=== PATIENT | female | born 1975 | race Caucasian/White ===

== ENCOUNTER 2018-02-10 17:05 | Emergency (ER) | payer BC, OTHER ==
[2018-02-10] MEDS ORDERED: Sodium Chloride 0.9% 1000 ML 1,000 ML IV STA (17:29)
[2018-02-10] MEDS ORDERED: MORPHINE SULFATE 10 MG/ML IV ONE (17:29)
[2018-02-10] MEDS ORDERED: BENADRYL 50 MG/ML IV ONE (17:29)
--- NOTE | 2018-02-10 17:39 | ERPHSYRPT ---
- History of Present Illness Time Seen by Provider: 02/10/18 17:20 Historian: patient Exam Limitations: clinical condition Patient Subjective Stated Complaint: Right flank pain x1 hour Triage Nursing Assessment: Pt presents to the ED with complaints of right flank pain that began approximately an hour ago. Pt states she was sitting on her couch when the pain began. Pt states she believes she may be constipated, states hx of constipated. No distress noted, skin PWD, A&O x4. Physician History: PATIENT COMPLAINS OF ACUTE ONSET OF RIGHT LOWER BACK PAIN X 1 HOUR, SEVERE DISCOMFORT, PAIN SCALE 10/10, DENIES NAUSEA, EMESIS, URINARY SYMPTOMS, FREQUENCY, URGENCY, DYSURIA, HEMATURIA, OR RADIATION OF PAIN INTO LOWER ABDOMEN. DENIES FEVER OR CHILLS. EMS ADMINISTERED INTRAVENOUS ZOFRAN 4MG AND FENTANYL 100MCG. Timing/Duration: today Activities at Onset: none Quality: sharpness, throbbing Abdominal Pain Onset Location: flank, other (RIGHT LOWER BACK PAIN) Severity of Pain-Max: severe Severity of Pain-Current: severe Modifying Factors: Improves With: movement Associated Symptoms: denies symptoms Previous symptoms: no prior history Allergies/Adverse Reactions: povidone-iodine [From Betadine] Allergy (Verified 05/26/13 17:03) soap [From Betadine] Allergy (Verified 05/26/13 17:03) Home Medications: Desvenlafaxine [Desvenlafaxine ER] 100 mg PO DAILY 02/10/18 [History] Hx Tetanus, Diphtheria Vaccination/Date Given: Yes Hx Influenza Vaccination/Date Given: No Hx Pneumococcal Vaccination/Date Given: No Immunizations Up to Date: No - Review of Systems Constitutional: No Fever, No Chills Eyes: No Symptoms Ears, Nose, & Throat: No Symptoms Respiratory: No Cough, No Dyspnea Cardiac: No Chest Pain, No Edema, No Syncope Abdominal/Gastrointestinal: No Abdominal Pain, No Nausea, No Vomiting, No Diarrhea Genitourinary Symptoms: Flank Pain, No Dysuria Musculoskeletal: Back Pain, No Neck Pain Skin: No Rash Neurological: No Dizziness, No Focal Weakness, No Sensory Changes Psychological: No Symptoms Endocrine: No Symptoms All Other Systems: Reviewed and Negative - Past Medical History Pertinent Past Medical History: No - Past Surgical History Past Surgical History: Yes Female Surgical History: Section Other Surgical History: BREAST REDUCTION, - Social History Smoking Status: Never smoker Exposure to second hand smoke: No Alcohol Use: None Drug Use: none Patient Lives Alone: No Significant Family History: no pertinent family hx - Female History Hx Now: No - Nursing Vital Signs Nursing Vital Signs: Initial Vital Signs Temperature 98.4 F 02/10/18 17:06 Pulse Rate 57 L 02/10/18 17:06 Respiratory Rate 16 02/10/18 17:06 Blood Pressure 204/94 02/10/18 17:06 O2 Sat by Pulse Oximetry 96 02/10/18 17:06 Pain Scale Pain Intensity 6 - Physical Exam General Appearance: mild distress, alert Eye Exam: PERRL/EOMI, eyes nml inspection Ears, Nose, Throat Exam: normal ENT inspection, pharynx normal, moist mucous membranes Neck Exam: normal inspection, non-tender, supple, full range of motion Respiratory Exam: normal breath sounds, lungs clear, No respiratory distress Cardiovascular Exam: regular rate/rhythm, normal heart sounds Gastrointestinal/Abdomen Exam: soft, normal bowel sounds (NONTENDER), No tenderness, No mass Back Exam: normal inspection, normal range of motion, other (TENDERNESS RIGHT POSTERIOR SUPERIOR ILIAC CREST, NO LUMBAR SPINAL, PARASPINAL OR SACROILIAC JOINT TENDERNESS, MINIMAL RIGHT CVA TENDERNESS), No CVA tenderness, No vertebral tenderness Extremity Exam: normal inspection, normal range of motion, pelvis stable Neurologic Exam: alert, 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, cooperative, normal mood/affect, nml cerebellar function, sensation nml, No motor deficits Skin Exam: normal color, warm, dry SpO2: 96 Oxygen Delivery: Room Air - CT Exams Abdomen/Pelvis CT Interpretation: Discussed w/radiologist (NEGATIVE FOR CALCULUS, MILD RIGHT HYDRONEPHROSIS WITH MNIMAL HYDROURETER, POSSIBLE PASSAGE OF STONE, IUD, 3CM LEFT OVARIAN CYST, L5 SPONDYLOLYSIS, WITH 6MM SPONDYLOLISTHESIS) Ordered Tests: Active Orders 24 hr Category Date Time Status Clean Catch Urine Specimen STAT Care 02/10/18 17:29 Active IV Insertion STAT Care 02/10/18 17:29 Active ABDOMEN AND PELVIS W/0 CONTRAS [CT] Stat Exams 02/10/18 17:30 Taken CBC W DIFF Stat Lab 02/10/18 18:00 Completed CMP Stat Lab 02/10/18 18:00 Completed CULTURE,URINE Stat Lab 02/10/18 17:50 Received HCG,QUALITATIVE URINE Stat Lab 02/10/18 17:50 Completed LIPASE Stat Lab 02/10/18 18:00 Completed UA W/ MICROSCOPIC Stat Lab 02/10/18 17:50 Completed Urine Triage Profile Stat Lab 02/10/18 17:50 Completed Medication Summary Discontinued Medications Generic Name Dose Route Start Last Admin Trade Name Freq PRN Reason Stop Dose Admin Diphenhydramine HCl 25 mg 02/10/18 17:29 02/10/18 17:58 Benadryl 50 Mg/Ml IV 02/10/18 17:30 25 mg STAT ONE Administration Diphenhydramine HCl Confirm 02/10/18 17:50 Benadryl 50 Mg/Ml Administered 02/10/18 17:51 Dose 50 mg .ROUTE .STK-MED ONE Sodium Chloride 1,000 mls @ 999 mls/hr 02/10/18 17:29 02/10/18 17:58 Sodium Chloride 0.9% 1000 Ml IV 02/10/18 18:29 999 mls/hr .Q1H1M STA Administration Sodium Chloride Confirm 02/10/18 17:50 Sodium Chloride 0.9% 1000 Ml Administered 02/10/18 17:51 Dose 1,000 mls @ ud .ROUTE .STK-MED ONE Morphine Sulfate 6 mg 02/10/18 17:29 02/10/18 17:58 Morphine Sulfate 10 Mg/Ml IV 02/10/18 17:30 6 mg STAT ONE Administration Morphine Sulfate Confirm 02/10/18 17:50 Morphine Sulfate 10 Mg/Ml Administered 02/10/18 17:51 Dose 10 mg .ROUTE .STK-MED ONE Lab/Rad Data: Laboratory Result Diagrams 02/10/18 18:00 02/10/18 18:00 Laboratory Results 02/10/18 02/10/18 02/10/18 Range/Units 18:00 18:00 17:50 WBC 10.2 (4.0-10.5) K/mm3 RBC 5.08 (4.1-5.4) M/mm3 Hgb 15.1 (12.0-16.0) gm/dl Hct 45.2 (35-47) % MCV 89.0 (78-100) fl MCH 29.7 (26-32) pg MCHC 33.4 (32-36) g/dl RDW 13.0 (11.5-14.0) % Plt Count 261 (150-450) K/mm3 MPV 11.2 H (6-9.5) fl Gran % 75.9 H (36.0-66.0) % Eos # (Auto) 0.35 (0-0.5) Absolute Lymphs (auto) 1.60 (1.0-4.6) Absolute Monos (auto) 0.48 (0.0-1.3) Lymphocytes % 15.7 L (24.0-44.0) % Monocytes % 4.7 (0.0-12.0) % Eosinophils % 3.4 (0.00-5.0) % Basophils % 0.3 (0.0-0.4) % Absolute Granulocytes 7.76 H (1.4-6.9) Basophils # 0.03 (0-0.4) Sodium 141 (137-145) mmol/L Potassium 4.0 (3.5-5.1) mmol/L Chloride 104 (98-107) mmol/L Carbon Dioxide 30 (22-30) mmol/L Anion Gap 10.7 (5-15) MEQ/L BUN 8 (7-17) mg/dL Creatinine 0.78 (0.52-1.04) mg/dL Estimated GFR > 60.0 ML/MIN Glucose 111 H (74-106) mg/dL Calcium 9.2 (8.4-10.2) mg/dL Total Bilirubin 0.50 (0.2-1.3) mg/dL AST 33 (14-36) U/L ALT 44 H (0-35) U/L Alkaline Phosphatase 163 H (38-126) U/L Serum Total Protein 7.1 (6.3-8.2) g/dL Albumin 4.0 (3.5-5.0) g/dL Lipase 74 (23-300) U/L Ur Collection Type Urine Color (YELLOW) Urine Appearance (CLEAR) Urine pH (5-6) Ur Specific [place] (1.005-1.025) Urine Protein (Negative) Urine Ketones (NEGATIVE) Urine Blood (0-5) Jefry/ul Urine Nitrite (NEGATIVE) Urine Bilirubin (NEGATIVE) Urine Urobilinogen (0-1) mg/dL Ur Leukocyte Esterase (NEGATIVE) Urine Microscopic RBC (0-2) /HPF Urine Microscopic WBC (0-5) /HPF Ur Epithelial Cells (FEW) /HPF Urine Bacteria (NEGATIVE) /HPF Hyaline Casts (0-2) /LPF Urine Mucus (NEGATIVE) /HPF Urine Culture Reflexed (NO) Urine Glucose (NEGATIVE) mg/dL Urine HCG, Qual NEGATIVE (Negative) Urine Opiates Level (NEGATIVE) Ur Methadone (NEGATIVE) Urine Barbiturates (NEGATIVE) Ur Phencyclidine (PCP) (NEGATIVE) Urine Amphetamine (NEGATIVE) U Benzodiazepine Level (NEGATIVE) Urine Cocaine (NEGATIVE) Urine Marijuana (THC) (NEGATIVE) Specimen Received 02/10/18 02/10/18 Range/Units 17:50 17:50 WBC (4.0-10.5) K/mm3 RBC (4.1-5.4) M/mm3 Hgb (12.0-16.0) gm/dl Hct (35-47) % MCV (78-100) fl MCH (26-32) pg MCHC (32-36) g/dl RDW (11.5-14.0) % Plt Count (150-450) K/mm3 MPV (6-9.5) fl Gran % (36.0-66.0) % Eos # (Auto) (0-0.5) Absolute Lymphs (auto) (1.0-4.6) Absolute Monos (auto) (0.0-1.3) Lymphocytes % (24.0-44.0) % Monocytes % (0.0-12.0) % Eosinophils % (0.00-5.0) % Basophils % (0.0-0.4) % Absolute Granulocytes (1.4-6.9) Basophils # (0-0.4) Sodium (137-145) mmol/L Potassium (3.5-5.1) mmol/L Chloride (98-107) mmol/L Carbon Dioxide (22-30) mmol/L Anion Gap (5-15) MEQ/L BUN (7-17) mg/dL Creatinine (0.52-1.04) mg/dL Estimated GFR ML/MIN Glucose (74-106) mg/dL Calcium (8.4-10.2) mg/dL Total Bilirubin (0.2-1.3) mg/dL AST (14-36) U/L ALT (0-35) U/L Alkaline Phosphatase (38-126) U/L Serum Total Protein (6.3-8.2) g/dL Albumin (3.5-5.0) g/dL Lipase (23-300) U/L Ur Collection Type CLEAN CATCH Urine Color YELLOW (YELLOW) Urine Appearance CLEAR (CLEAR) Urine pH 5.0 (5-6) Ur Specific [place] 1.020 (1.005-1.025) Urine Protein NEGATIVE (Negative) Urine Ketones NEGATIVE (NEGATIVE) Urine Blood 50 (0-5) Jefry/ul Urine Nitrite NEGATIVE (NEGATIVE) Urine Bilirubin NEGATIVE (NEGATIVE) Urine Urobilinogen NORMAL (0-1) mg/dL Ur Leukocyte Esterase NEGATIVE (NEGATIVE) Urine Microscopic RBC 5-10 (0-2) /HPF Urine Microscopic WBC 0-2 (0-5) /HPF Ur Epithelial Cells FEW (FEW) /HPF Urine Bacteria FEW (NEGATIVE) /HPF Hyaline Casts 0-2 (0-2) /LPF Urine Mucus SLIGHT (NEGATIVE) /HPF Urine Culture Reflexed YES (NO) Urine Glucose NEGATIVE (NEGATIVE) mg/dL Urine HCG, Qual (Negative) Urine Opiates Level NEGATIVE (NEGATIVE) Ur Methadone NEGATIVE (NEGATIVE) Urine Barbiturates NEGATIVE (NEGATIVE) Ur Phencyclidine (PCP) NEGATIVE (NEGATIVE) Urine Amphetamine NEGATIVE (NEGATIVE) U Benzodiazepine Level NEGATIVE (NEGATIVE) Urine Cocaine NEGATIVE (NEGATIVE) Urine Marijuana (THC) NEGATIVE (NEGATIVE) Specimen Received 02/10/18 1750 - Progress Progress: improved Progress Note: 02/10/18 17:40 IV NORMAL SALINE 1000ML/HR, BENADRYL 25MG, MORPHINE 6MG IV Counseled pt/family regarding: lab results, diagnosis, need for follow-up, rad results - Departure Time of Disposition: 20:00 Departure Disposition: Home Clinical Impression: RIGHT RENAL COLIC Condition: Stable Critical Care Time: No Referrals: DONNELL VANCE MD [Primary Care Provider] - Additional Instructions: STRAIN URINE FOR 72 HOURS. TORADOL 10 MG EVERY 6 HOURS FOR MILD TO MODERATE PAIN. NORCO 10/325 EVERY 4 HOURS FOR SEVERE PAIN. ZOFRAN 4MG EVERY 6 HOURS FOR NAUSEA. DRINK PLENTY OF FLUIDS. CONSULT YOUR PRIMARY CARE PROVIDER FOR FOLLOWUP. Prescriptions: Hydrocodone/APAP 10/325 mg [[place] 10/325 MG Tablet] 1 tab PO Q4H PRN PRN # 10 tablet MDD 4 PRN Reason: Pain Ketorolac Tromethamine [Toradol] 10 mg PO Q6HPRN PRN #20 tablet PRN Reason: Pain Ondansetron ODT 4 MG [Zofran Odt 4 mg] 4 mg PO Q6H PRN PRN #6 tab.rapdis PRN Reason: Nausea
[2018-02-10] MEDS ORDERED: Sodium Chloride 0.9% 1000 ML 1,000 ML ONE (17:50)
[2018-02-10] MEDS ORDERED: BENADRYL 50 MG/ML ONE (17:50)
[2018-02-10] MEDS ORDERED: MORPHINE SULFATE 10 MG/ML ONE (17:50)
[2018-02-10 18:12] LABS: BASOPHIL % 0.3 % (0.0-0.4); Basophil (Absolute #) 0.03 (0-0.4); Eosinophil % 3.4 % (0.00-5.0); Eosinophil (Absolute #) 0.35 (0-0.5); Granulocyte Absolute (ANC) 7.76 (1.4-6.9); Granulocytes % 75.9 % (36.0-66.0); Hematocrit 45.2 % (35-47); Hemoglobin 15.1 gm/dl (12.0-16.0); Lymphocytes % 15.7 % (24.0-44.0); Mean Corpuscular Hemoglobin 29.7 pg (26-32); Mean Corpuscular Hgb Concent. 33.4 g/dl (32-36); Mean Platelet Volume 11.2 fl (6-9.5); Monocyte (Absolute #) 0.48 (0.0-1.3); Monocytes % 4.7 % (0.0-12.0); Platelet Count 261 K/mm3 (150-450); Red Blood Count 5.08 M/mm3 (4.1-5.4); White Blood Count 10.2 K/mm3 (4.0-10.5)
[2018-02-10 18:32] LABS: ALKALINE PHOSPHATASE 163 U/L (38-126); ANION GAP 10.7 MEQ/L (5-15); BLOOD UREA NITROGEN 8 mg/dL (7-17); CHLORIDE 104 mmol/L (98-107); Calcium 9.2 mg/dL (8.4-10.2); Carbon Dioxide 30 mmol/L (22-30); Creatinine 1 0.78 mg/dL (0.52-1.04); Glucose 111 mg/dL (74-106); LIPASE 74 U/L (23-300); SGOT/AST 33 U/L (14-36); SGPT/ALT 44 U/L (0-35); SODIUM 141 mmol/L (137-145); Total Protein 7.1 g/dL (6.3-8.2)
[2018-02-10 18:51] LABS: Amphetamine,Urine NEGATIVE (NEGATIVE); Barbiturate,Urine NEGATIVE (NEGATIVE); Benzodiazepine,Urine NEGATIVE (NEGATIVE); Cocaine,Urine NEGATIVE (NEGATIVE); Methadone,Urine NEGATIVE (NEGATIVE); Opiate,Urine NEGATIVE (NEGATIVE); PCP,Urine NEGATIVE (NEGATIVE); THC,Urine NEGATIVE (NEGATIVE)
[2018-02-10 18:54] LABS: Appearance CLEAR (CLEAR)
[2018-02-10 18:55] LABS: Bilirubin NEGATIVE (NEGATIVE); Blood 50 Ery/ul (0-5); Glucose NEGATIVE (NEGATIVE); Ketones NEGATIVE (NEGATIVE); Leukocyte Esterase NEGATIVE (NEGATIVE); Nitrite NEGATIVE (NEGATIVE); Protein,Urine Dip NEGATIVE (Negative); Urobilinogen NORMAL mg/dL (0-1)
[2018-02-10 19:19] LABS: Mucus SLIGHT /HPF (NEGATIVE)
[2018-02-10 19:20] LABS: Bacteria FEW /HPF (NEGATIVE); Epithelial Cells FEW /HPF (FEW); Hyaline Casts 0-2 /LPF (0-2); WBC 0-2 /HPF (0-5)
[2018-02-10 20:31] VITALS: BP 125/74; PULSE 66; O2SAT 97
--- NOTE | 2018-02-11 09:17 | XRAY ---
Indication: Right flank pain. Multiple contiguous axial images obtained through the abdomen and pelvis without contrast using renal stone protocol. Comparison: None Lung bases are essentially clear. Heart is not enlarged. No renal calculus in either system. Right kidney is mildly hydronephrotic and the right ureter is slightly prominent which can be seen from recent passage of calculus. Elsewhere there is a 3 cm left ovary cyst and a IUD in situ. Previous cholecystectomy. No free fluid/air. Noncontrasted stomach and bowel loops appear nonobstructed. Normal appendix. Remaining liver, pancreas, spleen, adrenal glands, kidneys, ureters, bladder, uterus, and aorta appear unremarkable for noncontrast exam. Osseous structures intact with bilateral L5 spondylolysis and 6 mm spondylolisthesis. Incidental L3 vertebral hemangioma. Small fatty epigastric midline ventral hernia. Impression: 1. Negative renal calculus. However right kidney is mildly hydronephrotic and the right ureter is slightly prominent possibly from recent passage of calculus. 2. Incidental 3 cm left ovary cyst and small fatty ventral hernia. 3. Bilateral L5 spondylolysis with grade 1 spondylolisthesis. Also L3 vertebral hemangioma. CT DI 23.68
== END 2018-02-10 20:32 | disposition home or self-care (01) ==
LOC: ED 17:05
DX: N23 Unspecified renal colic (principal); R10.9 Unspecified abdominal pain; M54.5 Low back pain
CPT/HCPCS: 36000; 36415; 74176; 80053; 80307; 81000; 83690; 84703; 85025; 87086; 96374; 96375; 99284; J1200; J2270

== ENCOUNTER 2023-01-21 15:44 | Emergency (ER) | payer BC ==
--- NOTE | 2023-01-21 15:50 | ERPHSYRPT ---
- History of Present Illness Time Seen by Provider: 01/21/23 15:50 Source: patient Exam Limitations: no limitations Physician History: This is a 47-year-old overweight white female patient who has a nurse practitioner Patrick as her primary prescribing provider and presents to the emergency department with dizziness and low blood pressure. Patient is on a single tablet but a combination antihypertensive lisinopril/hydrochlorothiazide. She has been taking this medication for quite some time. Patient has noticed in the last several days that she has had intermittent dizziness and a migraine headache. Today, she noticed when she was up and active or suddenly turned her head or stood up she became more dizzy. Patient's systolic blood pressure upon arrival to the emergency department was 108. She denies chest pain. She denies shortness of breath. She has no abdominal pain. She has had no nausea vomiting or diarrhea symptoms. She has had no fevers. She denies cough. She has had this issue in the past with low blood pressure and dizziness and her prescribing provider took one of her blood pressure medicines away and this helped for a period of time. Patient denies any new medications. Patient denies head injury Timing/Duration: day(s) (Last few days), intermittent, worse (Worse today) Severity: mild (To moderate) Character of Deficits: none Deficits: no difficulties Baseline/Normal Cognition: alert 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 Current Cognition: alert 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 Baseline Gait: walks w/o assistance Associated Symptoms: headache, No loss of consciousness, No nausea, No vomiting, No weakness, No slurred speech, No vision changes, No chest pain Allergies/Adverse Reactions: povidone-iodine [From Betadine] Allergy (Verified 01/21/23 15:57) soap [From Betadine] Allergy (Verified 01/21/23 15:57) Home Medications: Desvenlafaxine [Desvenlafaxine ER] 100 mg PO DAILY 02/10/18 [History] Lisinopril/Hydrochlorothiazide [Lisinopril-Hctz 20-25 mg Tab] 1 tab PO DAILY 01/21/23 [History] Hx Tetanus, Diphtheria Vaccination/Date Given: Yes Hx Influenza Vaccination/Date Given: No Hx Pneumococcal Vaccination/Date Given: No Travel Risk - International Travel Have you traveled outside of the country in past 3 weeks: No - Coronavirus Screening Are you exhibiting any of the following symptoms?: No Close contact with a COVID-19 positive Pt in past 14-21 Days: No - Review of Systems Constitutional: No Symptoms Eyes: No Symptoms Ears, Nose, & Throat: No Symptoms Respiratory: No Symptoms Cardiac: No Symptoms Abdominal/Gastrointestinal: No Symptoms Genitourinary Symptoms: No Symptoms Musculoskeletal: No Symptoms Neurological: Dizziness, Headache Psychological: No Symptoms Endocrine: No Symptoms Hematologic/Lymphatic: No Symptoms Immunological/Allergic: No Symptoms All Other Systems: Reviewed and Negative - Past Medical History Pertinent Past Medical History: No Neurological History: No Pertinent History Cardiac History: Hypertension Respiratory History: No Pertinent History Endocrine Medical History: No Pertinent History Musculoskeletal History: No Pertinent History - Past Surgical History Past Surgical History: Yes Female Surgical History: Section Other Surgical History: BREAST REDUCTION, - Social History Smoking Status: Never smoker Exposure to second hand smoke: No Alcohol Use: None Drug Use: none Patient Lives Alone: No Significant Family History: no pertinent family hx - Nursing Vital Signs Nursing Vital Signs: Initial Vital Signs Temperature 97.7 F 01/21/23 16:01 Pulse Rate 82 01/21/23 16:01 Respiratory Rate 18 01/21/23 16:01 Blood Pressure 108/73 01/21/23 16:01 O2 Sat by Pulse Oximetry 98 01/21/23 16:01 Pain Scale Pain Intensity 5 - Lisa Coma Scale Best Eye Response ([place]): (4) open spontaneously Best Verbal Response (Lisa): (5) oriented Best Motor Response (Lisa): (6) obeys commands Lisa Total: 15 - Physical Exam General Appearance: no apparent distress, alert, anxiety Eye Exam: bilateral eye: normal inspection, PERRL, EOMI Ears, Nose, Throat Exam: normal ENT inspection, moist mucous membranes Neck Exam: normal inspection, non-tender, supple, full range of motion Respiratory: normal breath sounds, lungs clear, airway intact, No chest tenderness, No respiratory distress Cardiovascular: regular rate/rhythm, normal heart sounds, normal peripheral pulses Gastrointestinal: soft, normal bowel sounds, No tenderness Pelvic Exam: not done Rectal Exam: not done Back Exam: normal inspection, normal range of motion, No CVA tenderness, No vertebral tenderness Extremity Exam: normal inspection, normal range of motion, pelvis stable Mental 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: alert, 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, 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 Exam: normal hearing, normal speech, PERRL, tongue midline Coordination/Gait: normal gait, normal cerebellar function Motor/Sensory: no motor deficit, no sensory deficit, no pronator drift Skin Exam: normal color, warm, dry SpO2 Interpretation: normal O2 Delivery: Room Air - Course Nursing assessment & vital signs reviewed: Yes EKG Interpreted by Me: RATE (76), Sinus Rhythm, NORMAL AXIS, NORMAL INTERVALS, NORMAL QRS, NORMAL ST-T, Other (No acute ischemic changes on today's twelve-lead EKG) Ordered Tests: Active Orders 24 hr Category Date Time Status Mold Blower STAT Care 01/21/23 15:51 Active EKG-ER Only STAT Care 01/21/23 15:50 Active IV Insertion STAT Care 01/21/23 15:50 Active POCT Glucose Check STAT Care 01/21/23 15:50 Active HEAD WITHOUT CONTRAST [CT] Stat Exams 01/21/23 15:51 Completed CBC W DIFF Stat Lab 01/21/23 16:00 Completed CMP Stat Lab 01/21/23 16:00 Completed MAGNESIUM Stat Lab 01/21/23 16:00 Completed TROPONIN Q4H Lab 01/21/23 16:00 Completed TROPONIN Q4H Lab 01/21/23 20:00 Ordered TROPONIN Q4H Lab 01/22/23 00:00 Ordered UA W/RFX UR CULTURE Stat Lab 01/21/23 16:01 Completed Medication Summary Generic Name Dose Route Start Last Admin Trade Name Freq PRN Reason Stop Dose Admin Sodium Chloride 1,000 mls @ 100 mls/hr 01/21/23 16:00 01/21/23 16:11 Sodium Chloride 0.9% 1000 Ml IV 02/20/23 15:59 100 mls/hr .Q10H LINDA Administration Lab/Rad Data: Laboratory Result Diagrams 01/21/23 16:00 01/21/23 16:00 Laboratory Results 01/21/23 01/21/23 01/21/23 Range/Units 16:01 16:00 16:00 WBC (4.0-10.5) x10^3/uL RBC (4.1-5.4) x10^6/uL Hgb (12.0-16.0) g/dL Hct (35-47) % MCV (78-100) fL MCH (26-32) pg MCHC (32-36) g/dL RDW (11.5-14.0) % Plt Count (150-450) x10^3/uL MPV (7.5-11.0) fL Gran % (36.0-66.0) % Immature Gran % (Auto) (0.00-0.4) % Nucleat RBC Rel Count (0.00-0.1) % Eos # (Auto) (0-0.5) x10^3/uL Immature Gran # (Auto) (0.00-0.03) x10^3u/L Absolute Lymphs (auto) (1.0-4.6) x10^3/uL Absolute Monos (auto) (0.0-1.3) x10^3/uL Absolute Nucleated RBC (0.00-0.01) x10^3u/L Lymphocytes % (24.0-44.0) % Monocytes % (0.0-12.0) % Eosinophils % (0.00-5.0) % Basophils % (0.0-0.4) % Absolute Granulocytes (1.4-6.9) x10^3/uL Basophils # (0-0.4) x10^3/uL Sodium 140 (137-145) mmol/L Potassium 3.7 (3.5-5.1) mmol/L Chloride 97 L (98-107) mmol/L Carbon Dioxide 36 H (22-30) mmol/L Anion Gap 10.1 (5-15) MEQ/L BUN 16 (7-17) mg/dL Creatinine 0.90 (0.52-1.04) mg/dL Estimated GFR > 60.0 ML/MIN Glucose 83 (74-106) mg/dL Calcium 9.0 (8.4-10.2) mg/dL Magnesium 2.2 (1.6-2.3) mg/dL Total Bilirubin 0.60 (0.2-1.3) mg/dL AST 36 (14-36) U/L ALT 38 H (0-35) U/L Alkaline Phosphatase 169 H (38-126) U/L Troponin I < 0.012 (0.000-0.034) ng/mL Serum Total Protein 8.4 H (6.3-8.2) g/dL Albumin 4.2 (3.5-5.0) g/dL Urine Color Yellow (Yellow) Urine Appearance Clear (Clear) Urine pH 5.5 (4.6-8.0) Ur Specific [place] 1.025 (1.005-1.030) Urine Protein Negative (Negative) Urine Glucose (UA) Negative (Negative) mg/dL Urine Ketones Negative (Negative) Urine Blood Negative (Negative) Urine Nitrite Negative (Negative) Urine Bilirubin Negative (Negative) Urine Urobilinogen 1.0 A (0.2) mg/dL Ur Leukocyte Esterase Negative (Negative) U Hyaline Cast (Auto) NONE SEEN (0-2) /LPF Urine Microscopic RBC 0-2 (0-5) /HPF Urine Microscopic WBC 3-5 (0-5) /HPF Ur Epithelial Cells Rare (None Seen) /HPF Urine Bacteria Rare A (None Seen) /HPF Urine Culture Reflexed NO (NO) 01/21/23 Range/Units 16:00 WBC 10.6 H (4.0-10.5) x10^3/uL RBC 4.97 (4.1-5.4) x10^6/uL Hgb 14.6 (12.0-16.0) g/dL Hct 46.2 (35-47) % MCV 93.0 (78-100) fL MCH 29.4 (26-32) pg MCHC 31.6 L (32-36) g/dL RDW 12.7 (11.5-14.0) % Plt Count 341 (150-450) x10^3/uL MPV 10.0 (7.5-11.0) fL Gran % 68.3 H (36.0-66.0) % Immature Gran % (Auto) 0.4 (0.00-0.4) % Nucleat RBC Rel Count 0.0 (0.00-0.1) % Eos # (Auto) 0.22 (0-0.5) x10^3/uL Immature Gran # (Auto) 0.04 H (0.00-0.03) x10^3u/L Absolute Lymphs (auto) 2.48 (1.0-4.6) x10^3/uL Absolute Monos (auto) 0.56 (0.0-1.3) x10^3/uL Absolute Nucleated RBC 0.00 (0.00-0.01) x10^3u/L Lymphocytes % 23.4 L (24.0-44.0) % Monocytes % 5.3 (0.0-12.0) % Eosinophils % 2.1 (0.00-5.0) % Basophils % 0.5 (0.0-0.4) % Absolute Granulocytes 7.25 H (1.4-6.9) x10^3/uL Basophils # 0.05 (0-0.4) x10^3/uL Sodium (137-145) mmol/L Potassium (3.5-5.1) mmol/L Chloride (98-107) mmol/L Carbon Dioxide (22-30) mmol/L Anion Gap (5-15) MEQ/L BUN (7-17) mg/dL Creatinine (0.52-1.04) mg/dL Estimated GFR ML/MIN Glucose (74-106) mg/dL Calcium (8.4-10.2) mg/dL Magnesium (1.6-2.3) mg/dL Total Bilirubin (0.2-1.3) mg/dL AST (14-36) U/L ALT (0-35) U/L Alkaline Phosphatase (38-126) U/L Troponin I (0.000-0.034) ng/mL Serum Total Protein (6.3-8.2) g/dL Albumin (3.5-5.0) g/dL Urine Color (Yellow) Urine Appearance (Clear) Urine pH (4.6-8.0) Ur Specific [place] (1.005-1.030) Urine Protein (Negative) Urine Glucose (UA) (Negative) mg/dL Urine Ketones (Negative) Urine Blood (Negative) Urine Nitrite (Negative) Urine Bilirubin (Negative) Urine Urobilinogen (0.2) mg/dL Ur Leukocyte Esterase (Negative) U Hyaline Cast (Auto) (0-2) /LPF Urine Microscopic RBC (0-5) /HPF Urine Microscopic WBC (0-5) /HPF Ur Epithelial Cells (None Seen) /HPF Urine Bacteria (None Seen) /HPF Urine Culture Reflexed (NO) - Progress Progress: unchanged Progress Note: 01/21/23 17:16 This patient's medical issue is 1 of moderate complexity. The level complexity and the work-up performed is based on review of the patient's past medical history, review review of the patient's medication list, review of the patient's drug allergy list, history present illness and physical findings on examination. The work-up in this patient includes a CT scan of the head without contrast, urinalysis, placement of intravenous line and infusion of 1 L of normal saline solution, CBC, CMP, twelve-lead EKG and troponin level. Patient has sinusitis. This may be contributing to her dizziness symptoms. In addition, her systolic blood pressure, according to her, is usually in the 140s. She presents to the emergency department with a systolic blood pressure 108. My recommendations will be for her to stop her blood pressure medicine and call her primary prescribing provider tomorrow morning, 01/22/2023 to obtain further instructions regarding her blood pressure medication. Patient was also told to keep a log of her blood pressure twice today and once in the morning and discussed those findings with her prescribing provider. We will also treat her sinusitis as an outpatient with prednisone and Z-Mark. 01/21/23 17:21 The results of the CT scan of the head without contrast shows no acute intracranial abnormality. There is right maxillary sinus opacification/disease Counseled pt/family regarding: lab results, diagnosis, need for follow-up, rad results Medical Desision Making - Diagnostic Testing Diagnostic test were ordered, analyzed, and reviewed by me: Yes Radiological Interpretation: Reviewed by me, Teleradiologist Report - Risk of complications The pt has a mod risk of morbidity or mortality based on: Need for prescription drug management - Departure Departure Disposition: Home Clinical Impression: Dizziness, Low blood pressure, Sinusitis Condition: Stable Critical Care Time: No Referrals: [facility]TER [Primary Care Provider] - Follow up/PCP as directed Additional Instructions: Drink plenty of fluids. Hold your blood pressure medication. Keep a log of your blood pressure readings. Take 1 reading when you get home this afternoon followed by a second reading this evening before bedtime. Repeat another blood pressure reading and write this down tomorrow morning. Call your primary prescribing provider tomorrow, 01/22/2023. Obtain further instructions regarding your blood pressure medication. Take your antibiotic and steroid as prescribed to treat your sinus infection. Prescriptions: Prednisone 10 mg [Deltasone 10 mg] 10 mg PO TID #12 tablet Azithromycin 250 mg [Zithromax 250 MG TABLET] 250 mg PO ZPACK #6 tablet
[2023-01-21] MEDS ORDERED: Sodium Chloride 0.9% 1000 ML 1,000 ML IV SCH (16:00)
[2023-01-21 16:03] LABS: Absolute Neutrophil Ct (ANC) 7.25 x10^3/uL (1.4-6.9); BASOPHIL % 0.5 % (0.0-0.4); Basophil (Absolute #) 0.05 x10^3/uL (0-0.4); Eosinophil % 2.1 % (0.00-5.0); Eosinophil (Absolute #) 0.22 x10^3/uL (0-0.5); Hematocrit 46.2 % (35-47); Hemoglobin 14.6 g/dL (12.0-16.0); IMMATURE GRAN # 0.04 x10^3u/L (0.00-0.03); IMMATURE GRAN % 0.4 % (0.00-0.4); Lymphocyte (Absolute #) 2.48 x10^3/uL (1.0-4.6); Lymphocytes % 23.4 % (24.0-44.0); Mean Corpuscular Hemoglobin 29.4 pg (26-32); Mean Corpuscular Hgb Concent. 31.6 g/dL (32-36); Monocyte (Absolute #) 0.56 x10^3/uL (0.0-1.3); Monocytes % 5.3 % (0.0-12.0); Neutrophil % 68.3 % (36.0-66.0); Platelet Count 341 x10^3/uL (150-450); Red Blood Count 4.97 x10^6/uL (4.1-5.4); Red Cell Distribution Width 12.7 % (11.5-14.0); White Blood Count 10.6 x10^3/uL (4.0-10.5)
[2023-01-21 16:10] LABS: Appearance Clear (Clear); Bacteria Rare /HPF (None Seen); Bilirubin Negative (Negative); Blood Negative (Negative); Epithelial Cells Rare /HPF (None Seen); Glucose, Urine Negative (Negative); Hyaline Casts NONE SEEN /LPF (0-2); Ketones Negative (Negative); Leukocyte Esterase Negative (Negative); Nitrite Negative (Negative); Ph 5.5 (4.6-8.0); Protein,Urine Dip Negative (Negative); RBC 0-2 /HPF (0-5); Specific Gravity 1.025 (1.005-1.030)
[2023-01-21] MEDS ORDERED: Sodium Chloride 0.9% 1000 ML 1,000 ML ONE (16:10)
[2023-01-21 16:19] LABS: ADD URINE CULTURE? NO (NO)
[2023-01-21 16:23] LABS: ALBUMIN 4.2 g/dL (3.5-5.0); ALKALINE PHOSPHATASE 169 U/L (38-126); ANION GAP 10.1 MEQ/L (5-15); BLOOD UREA NITROGEN 16 mg/dL (7-17); CHLORIDE 97 mmol/L (98-107); Carbon Dioxide 36 mmol/L (22-30); EST GLOMERULAR FILTRATION RATE > 60.0 ML/MIN; Glucose 83 mg/dL (74-106); MAGNESIUM 2.2 mg/dL (1.6-2.3); Potassium 3.7 mmol/L (3.5-5.1); SGOT/AST 36 U/L (14-36); SGPT/ALT 38 U/L (0-35); SODIUM 140 mmol/L (137-145); Total Protein 8.4 g/dL (6.3-8.2)
--- NOTE | 2023-01-21 16:43 | XRAY ---
Indication: Dizziness. Elevated blood pressure. Multiple contiguous axial images obtained through the head without contrast. Comparison: May 26, 2013 Normal appearing brain parenchyma, ventricles, and bony calvarium. New near complete opacification visualized right maxillary sinus. Mastoid air cells are clear. Impression: Paranasal sinus disease. Remaining CT head without contrast exam continues to be normal.
[2023-01-21 17:33] VITALS: BP 113/64; PULSE 78; O2SAT 100
== END 2023-01-21 17:35 | disposition home or self-care (01) ==
LOC: ED 15:44
DX: R42 Dizziness and giddiness (principal); I95.9 Hypotension, unspecified; J32.9 Chronic sinusitis, unspecified; I10 Essential (primary) hypertension; Z79.52 Long term (current) use of systemic steroids; Z79.899 Other long term (current) drug therapy
CPT/HCPCS: 36000; 36415; 70450; 80053; 81001; 83735; 84484; 85025; 93005; 93041; 96360; 99284

== ENCOUNTER 2024-03-13 08:09 | Emergency (ER) | payer BC ==
--- NOTE | 2024-03-13 08:15 | ERPHSYRPT ---
- History of Present Illness Time Seen by Provider: 03/13/24 08:15 Historian: patient Exam Limitations: no limitations Physician History: This is an overweight 49-year-old white female patient of nurse practitioner Patrick who has had progressively worsening, intermittent abdominal pain for 8 days. She has had intermittent episodes of nausea vomiting diarrhea as well. Patient does see a pain specialist, Dr. Palafox. Patient has a history of hypertension and depression. Patient's pain location is generalized. Patient denies chest pain and she denies shortness of breath. Timing/Duration: day(s) (8), worse Quality: sharpness, throbbing Abdominal Pain Onset Location: generalized abdomen Pain Radiation: no radiation Severity of Pain-Max: moderate Modifying Factors: Improves With: vomiting Associated Symptoms: diarrhea, loss of appetite, nausea, vomiting Previous symptoms: no prior history, no recent treatment Allergies/Adverse Reactions: povidone-iodine [From Betadine] Allergy (Verified 03/13/24 08:22) soap [From Betadine] Allergy (Verified 03/13/24 08:22) Home Medications: Lisinopril/Hydrochlorothiazide [Lisinopril-Hctz 20-25 mg Tab] 1 tab PO HS 01/21/23 [History] Venlafaxine HCl ER 75 mg [Effexor XR 75 MG] 75 mg PO HS 03/13/24 [History] Hx Tetanus, Diphtheria Vaccination/Date Given: Yes Hx Influenza Vaccination/Date Given: No Hx Pneumococcal Vaccination/Date Given: No Travel Risk - International Travel Have you traveled outside of the country in past 3 weeks: No - Emerging Infectious Disease Are you exhibiting symptoms associated with any current EIDs: No - Review of Systems Constitutional: No Symptoms Eyes: No Symptoms Ears, Nose, & Throat: No Symptoms Respiratory: No Symptoms Cardiac: No Symptoms Abdominal/Gastrointestinal: Abdominal Pain, Nausea, Vomiting, Diarrhea, Appetite Changes Genitourinary Symptoms: No Symptoms Musculoskeletal: No Symptoms Skin: No Symptoms Neurological: No Symptoms Psychological: No Symptoms Endocrine: No Symptoms Hematologic/Lymphatic: No Symptoms Immunological/Allergic: No Symptoms All Other Systems: Reviewed and Negative - Past Medical History Pertinent Past Medical History: No Neurological History: No Pertinent History ENT History: No Pertinent History Cardiac History: Hypertension Respiratory History: No Pertinent History Endocrine Medical History: No Pertinent History Musculoskeletal History: No Pertinent History GI Medical History: No Pertinent History History: No Pertinent History Psycho-Social History: Anxiety, Depression Female Reproductive Disorders: No Pertinent History - Past Surgical History Past Surgical History: Yes Female Surgical History: Section Other Surgical History: BREAST REDUCTION, Significant Family History: no pertinent family hx - Female History Hx Last Menstrual Period: NOW - Social History Smoking Status: Never smoker Exposure to second hand smoke: No Alcohol Use: None Drug Use: none Patient Lives Alone: No - Nursing Vital Signs Nursing Vital Signs: Initial Vital Signs Temperature 97.5 F 03/13/24 08:20 Pulse Rate 84 03/13/24 08:20 Respiratory Rate 22 03/13/24 08:20 Blood Pressure 89/63 03/13/24 08:20 O2 Sat by Pulse Oximetry 95 03/13/24 08:20 Pain Scale Pain Intensity 5 - Physical Exam General Appearance: no apparent distress, alert, anxiety, obese Eye Exam: PERRL/EOMI, eyes nml inspection Ears, Nose, Throat Exam: normal ENT inspection, moist mucous membranes Neck Exam: normal inspection, non-tender, supple, full range of motion Respiratory Exam: normal breath sounds, lungs clear, airway intact, No chest tenderness, No respiratory distress Cardiovascular Exam: regular rate/rhythm, normal heart sounds, normal peripheral pulses Gastrointestinal/Abdomen Exam: soft, normal bowel sounds, tenderness (Neurolyse to palpation), guarding Pelvic Exam: not done (Neurolyse to palpation) Rectal Exam: not done Back Exam: normal inspection, normal range of motion, No CVA tenderness, No vertebral tenderness Extremity Exam: normal inspection, normal range of motion, pelvis stable Neurologic Exam: alert, 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, cooperative, gastroenterologist II-XII nml as tested, nml cerebellar function, nml station & gait, sensation nml Skin Exam: normal color, warm, dry Lymphatic Exam: No adenopathy SpO2 Interpretation: normal O2 Delivery: Room Air - Course Nursing assessment & vital signs reviewed: Yes EKG Interpreted by Me: RATE (61), Sinus Rhythm, NORMAL AXIS, NORMAL INTERVALS, NORMAL QRS, NORMAL ST-T, Other (No acute ischemia on today's twelve-lead EKG.) Ordered Tests: Active Orders 24 hr Category Date Time Status EKG-ER Only STAT Care 03/13/24 10:05 Active IV Insertion STAT Care 03/13/24 08:54 Active ABDOMEN AND PELVIS W/0 CONTRAS [CT] Stat Exams 03/13/24 08:55 Completed AMYLASE Stat Lab 03/13/24 09:10 Completed CBC W DIFF Stat Lab 03/13/24 09:10 Completed CMP Stat Lab 03/13/24 09:10 Completed CULTURE,URINE Stat Lab 03/13/24 10:42 Received LIPASE Stat Lab 03/13/24 09:10 Completed Lactic Acid Stat Lab 03/13/24 09:00 Completed Manual Differential NC Stat Lab 03/13/24 09:10 Completed TROPONIN Q4H Lab 03/13/24 09:10 Completed TROPONIN Q4H Lab 03/13/24 14:15 Ordered TROPONIN Q4H Lab 03/13/24 18:15 Ordered TROPONIN Q4H Lab 03/13/24 22:15 Ordered UA W/RFX UR CULTURE Stat Lab 03/13/24 10:42 Completed Medication Summary Discontinued Medications Generic Name Dose Route Start Last Admin Trade Name Freq PRN Reason Stop Dose Admin Famotidine 40 mg 03/13/24 10:06 03/13/24 10:31 Famotidine 20 Mg/1 Vial IV 03/13/24 10:07 40 mg STAT ONE Administration Famotidine Confirm 03/13/24 10:30 Famotidine 20 Mg/1 Vial Administered 03/13/24 10:31 Dose 40 mg IV .STK-MED ONE Hydromorphone HCl 1 mg 03/13/24 08:54 03/13/24 09:45 Hydromorphone 1 Mg/1ml Inj IV 03/13/24 08:55 1 mg STAT ONE Administration Hydromorphone HCl Confirm 03/13/24 09:34 Hydromorphone 1 Mg/1ml Inj Administered 03/13/24 09:35 Dose 1 mg .ROUTE .STK-MED ONE Sodium Chloride 1,000 mls @ 999 mls/hr 03/13/24 08:54 03/13/24 10:46 Sodium Chloride 0.9% 1000 Ml IV 03/13/24 09:54 Infused .Q1H1M STA Infusion Sodium Chloride Confirm 03/13/24 09:34 Sodium Chloride 0.9% 1000 Ml Administered 03/13/24 09:35 Dose 1,000 mls @ ud .ROUTE .STK-MED ONE Ondansetron HCl 4 mg 03/13/24 08:54 03/13/24 09:37 Ondansetron Hcl 4 Mg/2 Ml Vial IV 03/13/24 08:55 4 mg STAT ONE Administration Ondansetron HCl Confirm 03/13/24 09:34 Ondansetron Hcl 4 Mg/2 Ml Vial Administered 03/13/24 09:35 Dose 4 mg .ROUTE .STK-MED ONE Pantoprazole Sodium 40 mg 03/13/24 08:54 03/13/24 09:38 Pantoprazole 40 Mg Vial IV 03/13/24 08:55 40 mg STAT ONE Administration Pantoprazole Sodium Confirm 03/13/24 09:34 Pantoprazole 40 Mg Vial Administered 03/13/24 09:35 Dose 40 mg IV .STK-MED ONE Lab/Rad Data: Laboratory Result Diagrams 03/13/24 09:10 03/13/24 09:10 Laboratory Results 03/13/24 03/13/24 03/13/24 Range/Units 10:42 09:10 09:10 WBC (3.98-10.04) x10^3/uL RBC (3.93-5.22) x10^6/uL Hgb (11.2-15.7) g/dL Hct (34.1-44.9) % MCV (79.4-94.8) fL MCH (25.6-32.2) pg MCHC (32.2-35.5) g/dL RDW (11.7-14.4) % Plt Count (182-369) x10^3/uL MPV (9.4-12.3) fL Segmented Neutrophils (1.56-6.13) % Lymphocytes (Manual) (24-44) % Monocytes (Manual) (0.0-12.0) % Atypical Lymphocytes % Platelet Estimate (NORMAL) RBC Morphology Sodium 135 (135-145) mmol/L Potassium 3.2 L (3.5-5.1) mmol/L Chloride 100 (98-107) mmol/L Carbon Dioxide 29 (22-30) mmol/L Anion Gap 8.3 (5-15) MEQ/L BUN 22 H (7-17) mg/dL Creatinine 1.32 H (0.52-1.04) mg/dL Estimated GFR 49.8 ML/MIN Glucose 103 (74-106) mg/dL Lactic Acid (0.4-2.0) Calcium 8.5 (8.4-10.2) mg/dL Total Bilirubin 0.80 (0.2-1.3) mg/dL AST 147 H (14-36) U/L ALT 164 H (0-35) U/L Alkaline Phosphatase 237 H (38-126) U/L Troponin I < 0.012 (0.000-0.033) ng/mL Serum Total Protein 6.5 (6.3-8.2) g/dL Albumin 3.3 L (3.5-5.0) g/dL Amylase 62 (30-110) U/L Lipase 80 (23-300) U/L Urine Color Yellow (Yellow) Urine Appearance Turbid A (Clear) Urine pH 5.0 (4.6-8.0) Ur Specific [place] 1.015 (1.005-1.030) Urine Protein 30 (Negative) Urine Glucose (UA) Negative (Negative) mg/dL Urine Ketones Negative (Negative) Urine Blood Negative (Negative) Urine Nitrite Negative (Negative) Urine Bilirubin Negative (Negative) Urine Urobilinogen 1.0 A (0.2) mg/dL Ur Leukocyte Esterase Negative (Negative) U Hyaline Cast (Auto) 11-20 (0-2) /LPF Urine Microscopic RBC 0-2 (0-5) /HPF Urine Microscopic WBC 3-5 (0-5) /HPF Ur Epithelial Cells Many A (None Seen) /HPF Urine Bacteria Many A (None Seen) /HPF Granular Casts 3-5 A (None Seen) /LPF Urine Culture Reflexed YES (NO) 03/13/24 03/13/24 Range/Units 09:10 09:00 WBC 10.5 H (3.98-10.04) x10^3/uL RBC 4.34 (3.93-5.22) x10^6/uL Hgb 12.5 (11.2-15.7) g/dL Hct 38.4 (34.1-44.9) % MCV 88.5 (79.4-94.8) fL MCH 28.8 (25.6-32.2) pg MCHC 32.6 (32.2-35.5) g/dL RDW 13.5 (11.7-14.4) % Plt Count 203 (182-369) x10^3/uL MPV 11.0 (9.4-12.3) fL Segmented Neutrophils 30 H (1.56-6.13) % Lymphocytes (Manual) 53 H (24-44) % Monocytes (Manual) 12 (0.0-12.0) % Atypical Lymphocytes 5 % Platelet Estimate NORMAL (NORMAL) RBC Morphology NORMAL Sodium (135-145) mmol/L Potassium (3.5-5.1) mmol/L Chloride (98-107) mmol/L Carbon Dioxide (22-30) mmol/L Anion Gap (5-15) MEQ/L BUN (7-17) mg/dL Creatinine (0.52-1.04) mg/dL Estimated GFR ML/MIN Glucose (74-106) mg/dL Lactic Acid 1.0 (0.4-2.0) Calcium (8.4-10.2) mg/dL Total Bilirubin (0.2-1.3) mg/dL AST (14-36) U/L ALT (0-35) U/L Alkaline Phosphatase (38-126) U/L Troponin I (0.000-0.033) ng/mL Serum Total Protein (6.3-8.2) g/dL Albumin (3.5-5.0) g/dL Amylase (30-110) U/L Lipase (23-300) U/L Urine Color (Yellow) Urine Appearance (Clear) Urine pH (4.6-8.0) Ur Specific [place] (1.005-1.030) Urine Protein (Negative) Urine Glucose (UA) (Negative) mg/dL Urine Ketones (Negative) Urine Blood (Negative) Urine Nitrite (Negative) Urine Bilirubin (Negative) Urine Urobilinogen (0.2) mg/dL Ur Leukocyte Esterase (Negative) U Hyaline Cast (Auto) (0-2) /LPF Urine Microscopic RBC (0-5) /HPF Urine Microscopic WBC (0-5) /HPF Ur Epithelial Cells (None Seen) /HPF Urine Bacteria (None Seen) /HPF Granular Casts (None Seen) /LPF Urine Culture Reflexed (NO) - Progress Progress: improved, pain not gone completely, re-examined Progress Note: 03/13/24 09:17 My medical decision making and the assignment of moderate complexity to this patient's medical issue today is based on review of the patient's past medical history, review of the patient's medication list, review of patient drug allergy list, history present illness and physical findings on examination. The workup in this patient includes intravenous line placement, infusion of normal saline solution, infusion of Dilaudid, infusion of Zofran, infusion of Protonix, CBC, CMP, amylase, lipase, lactic acid level, urinalysis and CT scan of the abdomen pelvis without contrast. 03/13/24 09:18 Differential diagnosis includes but not limited to appendicitis, colitis, pancreatitis, bowel obstruction, cholecystitis 03/13/24 11:06 I interpreted the patient's laboratory data results. The patient's potassium is 3.2 this is mildly low. In addition, she has mildly elevated liver transaminas es levels. The CT scan of the abdomen and pelvis was interpreted by the radiologist and I reviewed the impression. The impression states status postcholecystectomy. Normal appendix. No free air or free fluid. Noncontrasted stomach and bowel loops are nonacute and nonobstructive. There is a fatty ventral hernia present. No new or acute findings. Counseled pt/family regarding: lab results, diagnosis, need for follow-up, rad results - Departure Departure Disposition: Home Clinical Impression: Abdominal pain, Nausea & vomiting, Elevated liver transaminase level Condition: Stable Critical Care Time: No Referrals: PAZ QUIROGA NP [Primary Care Provider] - Follow up/PCP as directed Additional Instructions: Drink plenty of clear liquids before advancing your diet. Avoid fatty greasy sp icy foods. Call your primary care provider today, 03/13/2024 to make arrangements for follow-up appointment for further evaluation and management. Take your medications as prescribed. Prescriptions: Ondansetron ODT 4 MG [Zofran Odt 4 mg] 4 mg PO Q6H PRN PRN #10 tablet PRN Reason: Vomiting Famotidine 20 mg [Pepcid 20 MG] 20 mg PO DAILY #10 tablet
[2024-03-13 08:38] VITALS: TEMP 97.5
[2024-03-13 09:15] LABS: Hematocrit 38.4 % (34.1-44.9); Hemoglobin 12.5 g/dL (11.2-15.7); Mean Cell Volume 88.5 fL (79.4-94.8); Mean Corpuscular Hemoglobin 28.8 pg (25.6-32.2); Mean Corpuscular Hgb Concent. 32.6 g/dL (32.2-35.5); Platelet Count 203 x10^3/uL (182-369); Red Blood Count 4.34 x10^6/uL (3.93-5.22); Red Cell Distribution Width 13.5 % (11.7-14.4); White Blood Count 10.5 x10^3/uL (3.98-10.04)
[2024-03-13 09:30] LABS: ALBUMIN 3.3 g/dL (3.5-5.0); ANION GAP 8.3 MEQ/L (5-15); BILIRUBIN,TOTAL 0.8 mg/dL (0.2-1.3); Calcium 8.5 mg/dL (8.4-10.2); Creatinine 1 1.32 mg/dL (0.52-1.04); EST GLOMERULAR FILTRATION RATE 49.8 ML/MIN; Potassium 3.2 mmol/L (3.5-5.1); Total Protein 6.5 g/dL (6.3-8.2)
[2024-03-13] MEDS ORDERED: PROTONIX 40 MG IV IV ONE (09:34)
[2024-03-13] MEDS ORDERED: Sodium Chloride 0.9% 1000 ML 1,000 ML ONE (09:34)
[2024-03-13] MEDS ORDERED: Hydromorphone 1 mg/ml Injection ONE (09:34)
[2024-03-13] MEDS ORDERED: Zofran 4 MG/2 ML VIAL ONE (09:34)
[2024-03-13] MEDS: Sodium Chloride 0.9% 1000 ML 1,000 ML IV STA (09:36)
[2024-03-13] MEDS: Zofran 4 MG/2 ML VIAL IV ONE (09:37)
[2024-03-13] MEDS: PROTONIX 40 MG IV IV ONE (09:38)
[2024-03-13] MEDS: Hydromorphone 1 mg/ml Injection IV ONE (09:45)
--- NOTE | 2024-03-13 10:01 | XRAY ---
Indication: Pain, nausea, vomiting, diarrhea. Multiple contiguous axial images obtained through the abdomen and pelvis without contrast. Comparison: February 10, 2018 Lung bases remain clear. Heart is not enlarged. Noncontrasted stomach and bowel loops again nonacute and nonobstructed with normal appendix. Again cholecystectomy. No free fluid/air. Remaining liver, pancreas, spleen, adrenal glands, kidneys, ureters, bladder, uterus, and aorta are unremarkable for noncontrast exam. Osseous structures intact again with minimal levoscoliosis and bilateral L5 spondylolysis with grade 1 listhesis. Again incidental small L3 vertebral hemangioma. Stable small fall epigastric fatty ventral hernia. Impression: Stable L5 spondylolysis with grade 1 listhesis, minimal scoliosis, L3 vertebral hemangioma, and fatty ventral hernia. No new/acute findings on this noncontrast exam.
[2024-03-13 10:13] LABS: ATYPICAL LYMPHS 5 %; Lymphocytes 53 % (24-44); Monocyte 12 % (0.0-12.0); Neutrophils 30 % (1.56-6.13); Total Cells Counted 100
[2024-03-13 10:14] LABS: Platelet Estimate NORMAL (NORMAL)
[2024-03-13] MEDS ORDERED: Pepcid 20 MG VIAL IV ONE (10:30)
[2024-03-13] MEDS: Pepcid 20 MG VIAL IV ONE (10:31)
[2024-03-13 11:20] LABS: Appearance Turbid (Clear); Bacteria Many /HPF (None Seen); Bilirubin Negative (Negative); Blood Negative (Negative); Epithelial Cells Many /HPF (None Seen); Glucose, Urine Negative (Negative); Ketones Negative (Negative); Leukocyte Esterase Negative (Negative); Nitrite Negative (Negative); Protein,Urine Dip 30 (Negative); RBC 0-2 /HPF (0-5); Specific Gravity 1.015 (1.005-1.030)
[2024-03-13 11:23] LABS: ADD URINE CULTURE? YES (NO)
[2024-03-13] MEDS ORDERED: Sodium Chloride 0.9% 500 ML 500 ML IV ONE (12:21)
[2024-03-13] MEDS: Sodium Chloride 0.9% 500 ML 500 ML IV ONE (12:28)
[2024-03-13] MEDS: TORAdol 30 mg Injection IV ONE (12:40)
[2024-03-13] MEDS ORDERED: TORAdol 30 mg Injection ONE (12:40)
[2024-03-13 13:04] VITALS: BP 108/63; PULSE 55; RESP 16; O2SAT 99
== END 2024-03-13 13:33 | disposition home or self-care (01) ==
LOC: ED 08:09
DX: R10.84 Generalized abdominal pain (principal); R11.2 Nausea with vomiting, unspecified; R74.01 Elevation of levels of liver transaminase levels; I10 Essential (primary) hypertension; Z79.899 Other long term (current) drug therapy
CPT/HCPCS: 36000; 36415; 74176; 80053; 81001; 82150; 83605; 83690; 84484; 85025; 87086; 93005; 96374; 96375; 99285; J1170; J1885; J2405

== ENCOUNTER 2024-12-12 05:45 | Day surgery (SDC) | payer OTHER ==
[2024-12-12] MEDS ORDERED: Decadron 4 MG ONE (06:13)
[2024-12-12] MEDS ORDERED: TYLENOL EXTRA STRENGTH 500 MG ONE (06:13)
[2024-12-12] MEDS ORDERED: CEFAZOLIN 2 GM/100 ML NaCl 2 GM/100 ML IVPB IV ONE (06:13)
[2024-12-12] MEDS ORDERED: Lactated Ringers 1,000 ML IV ONE ×2 (06:14→09:46)
[2024-12-12] MEDS ORDERED: celeBREX 100 MG ONE (06:14)
[2024-12-12] MEDS ORDERED: NEURONTIN ONE (06:14)
[2024-12-12] MEDS: Lactated Ringers 1,000 ML IV SCH (06:20)
[2024-12-12] MEDS: Decadron 4 MG PO ONE (06:21)
[2024-12-12] MEDS: celeBREX 100 MG PO ONE (06:21)
[2024-12-12] MEDS: TYLENOL EXTRA STRENGTH 500 MG PO ONE (06:21)
[2024-12-12] MEDS: NEURONTIN PO ONE (06:22)
[2024-12-12] MEDS: Transderm Scop 1.5MG Patch TOP PRN (06:26)
[2024-12-12] MEDS: CEFAZOLIN 2 GM/100 ML NaCl 2 GM/100 ML IVPB IV SCH (06:28)
[2024-12-12 06:45] LABS: Absolute Neutrophil Ct (ANC) 3.42 x10^3/uL (1.56-6.13); BASOPHIL % 0.4 % (0.1-1.2); Basophil (Absolute #) 0.03 x10^3/uL (0.01-0.08); Eosinophil % 5.1 % (0.7-5.8); Eosinophil (Absolute #) 0.39 x10^3/uL (0.04-0.36); Hematocrit 40.4 % (34.1-44.9); Hemoglobin 13.1 g/dL (11.2-15.7); IMMATURE GRAN # 0.02 x10^3u/L (0.001-0.031); IMMATURE GRAN % 0.3 % (0.001-0.429); Lymphocyte (Absolute #) 3.26 x10^3/uL (1.18-3.74); Lymphocytes % 42.8 % (19.3-51.7); Mean Cell Volume 86.5 fL (79.4-94.8); Mean Corpuscular Hemoglobin 28.1 pg (25.6-32.2); Mean Corpuscular Hgb Concent. 32.4 g/dL (32.2-35.5); Mean Platelet Volume 10.3 fL (9.4-12.3); Monocyte (Absolute #) 0.49 x10^3/uL (0.24-0.86); Monocytes % 6.4 % (4.7-12.5); Platelet Count 229 x10^3/uL (182-369); Red Blood Count 4.67 x10^6/uL (3.93-5.22); Red Cell Distribution Width 12.2 % (11.7-14.4); White Blood Count 7.6 x10^3/uL (3.98-10.04)
[2024-12-12] MEDS ORDERED: SUBLIMAZE 100 MCG/2 ML ONE (06:50)
[2024-12-12] MEDS ORDERED: Versed 2 MG/2 ML Injection ONE (06:50)
[2024-12-12] MEDS ORDERED: DEXMEDETOMIDINE 80 MCG/20ML-NS IV ONE (06:52)
[2024-12-12] MEDS ORDERED: Xylocaine-Mpf 2% 5 Ml Vial ONE (06:52)
[2024-12-12] MEDS ORDERED: ROCURONIUM BROMIDE IV ONE (06:52)
[2024-12-12] MEDS ORDERED: propofoL IV ONE (06:53)
[2024-12-12] MEDS ORDERED: Zofran 4 MG/2 ML VIAL ONE (06:53)
[2024-12-12 06:56] VITALS: TEMP 97.8
[2024-12-12 06:58] LABS: ALBUMIN 4.1 g/dL (3.5-5.0); ANION GAP 13.7 MEQ/L (5-15); BILIRUBIN,TOTAL 0.9 mg/dL (0.2-1.3); Calcium 8.7 mg/dL (8.4-10.2); Creatinine 1 0.99 mg/dL (0.52-1.04); EST GLOMERULAR FILTRATION RATE 70.3 ML/MIN; Potassium 3.4 mmol/L (3.5-5.1); Total Protein 6.9 g/dL (6.3-8.2)
[2024-12-12] MEDS ORDERED: EXPAREL 133 MG/10 ML VIAL IJ ONE (06:58)
[2024-12-12] MEDS ORDERED: Marcaine Mpf 0.5% Vial 30 Ml ONE (06:58)
[2024-12-12] MEDS ORDERED: Pre-Attached Lta Kit TP ONE (06:58)
[2024-12-12] MEDS ORDERED: BREVIBLOC 100 MG/10 ML IV ONE (07:52)
[2024-12-12] MEDS ORDERED: ALBUTEROL/Proair Hfa MDI IH ONE (08:08)
[2024-12-12] MEDS ORDERED: Ephedrine Sulfate 50 MG/ML ONE (08:13)
[2024-12-12] MEDS ORDERED: Epinephrine Preservative Free 1 MG/ML ONE (08:20)
[2024-12-12] MEDS ORDERED: PHENYLEPHRINE HCL ONE (08:23)
[2024-12-12] MEDS ORDERED: BRIDION 200MG/2ML IV ONE (09:22)
[2024-12-12] MEDS ORDERED: ROBINUL ONE (09:31)
[2024-12-12] MEDS ORDERED: ATROPINE SULFATE 1MG ONE (09:34)
--- NOTE | 2024-12-12 09:45 | XRAY ---
Indication: Right 5th metatarsal ORIF surgery, ankle arthroscopy with complete synovectomy, repair peroneal tendon, and lateral ankle stabilization. Intraoperative fluoroscopy provided for 1 minute 34 seconds. Numerous digital spot and cine images demonstrates instrumentation ankle joint and single orthopedic screw fixating proximal 5th metatarsal fracture in good apposition/alignment. Correlate with operative findings/report.
[2024-12-12] MEDS ORDERED: NORCO 7.5/325 MG TAB PO PRN (11:55)
[2024-12-12 11:59] VITALS: BP 137/78; PULSE 86; RESP 16; O2SAT 96
--- NOTE | 2024-12-12 13:43 | XRAY ---
One minute and 34 seconds of fluoroscopy was used in surgery for a right 5th metatarsal ORIF surgery, ankle arthroscopy with complete synovectomy, repair peroneal tendon, and lateral ankle stabilization.
[2024-12-12] MEDS: TYLENOL 325 MG PO PRN (14:10)
[2024-12-12] MEDS: Mylicon 80MG PO SCH (14:10)
[2024-12-12] MEDS: Pepcid 20 MG PO SCH (14:10)
[2024-12-12] MEDS: Effexor XR 75 MG PO SCH (14:13)
--- NOTE | 2024-12-13 09:03 | OP ---
SURGERY DATE/TIME: 12/12/2024 9623 - [id number] PREOPERATIVE DIAGNOSES: 1) Ankle joint effusion. 2) Osteochondral defect. 3) Ankle instability, right ankle. 4) Peroneal tendinitis. 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 6) Right ankle pain. 7) Right foot pain. POSTOPERATIVE DIAGNOSES: 1) Ankle joint effusion. 2) Osteochondral defect. 3) Ankle instability, right ankle. 4) Peroneal tendinitis. 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 6) Right ankle pain. 7) Right foot pain. 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 9) Peroneus longus tenosynovitis. PROCEDURES: 1) Ankle arthroscopy with complete synovectomy. 2) Lateral ankle stabilization, double ligament Brostrom with internal brace. 3) Peroneus longus tenosynovectomy. 4) Peroneus brevis debridement with removal of low-lying muscle belly. 5) Calcaneal autograft. 6) Open reduction and internal fixation of fifth metatarsal fracture, delayed union repair. SURGEON: Curtis Almonte DPM ASSISTANTS: Nettie Parisi, Certified Surgical Coin Machine Collector, and Garrett Jones, DIGITAL MARKETING INTERN-C. ANESTHESIA: General, plus preoperative femoral block. HEMOSTASIS: A thigh tourniquet set to 300 mmHg a total of 60 total tourniquet minutes. ESTIMATED BLOOD LOSS: Approximately 15 mL. MATERIALS: 4-0 Monocryl, 3-0 nylon, one 2.9 JuggerKnot with BroadBand to a 2.9 Betta Link, with two 1.45 JuggerKnots for the Brostrom repair with internal brace, as well as a [facility] 4.5 x 35 mm Cordoba screw. INDICATIONS: The patient is a very pleasant 49-year-old female, who rolled her ankle and was seen by an orthopedic nurse practitioner for initial injury. She did have a nondisplaced fifth metatarsal fracture of the right foot, which did develop into a delayed healing, approximately 6 weeks with no bony growth in this area. From that standpoint, she did also have some pain associated with her ankle that had been increasing and worsening over time. Given the worsening of that pain, the nurse practitioner decided to proceed with consultation with my service. On inspection, patient did have a significant amount of pain to the right lower extremity in the area of the lateral ankle as well as that fifth metatarsal delayed union presentation. An MRI was obtained, demonstrating an incomplete bony fusion of the medial minimally displaced extra-articular fracture of the fifth metatarsal. On inspection of the MRI, less than 10% of that had healed, and in addition to that, there was intense bone marrow edema at that level of the fracture site. There was also thickening of the lateral ankle ligaments which did show some positive anterior drawer as well as talar tilt clinically; however, those on the MRI appeared to be chronic in nature, which may be an acute on chronic issue at this time. Discussion was held with the patient in regard to options for surgical intervention, for which we agreed to proceeding with an ankle arthroscopy assessing under stress views the ankle ligaments. In addition to that, the posterior ankle on the MRI demonstrated some chondral loss near the posterior margin of the tibial plafond which we did want to assess for a possible osteochondral defect. Given these findings, a scope was discussed as well as lateral ankle stabilization, peroneal tendon inspection with possible intervention associated with the negative findings on the MRI but heavily painful clinical symptoms, as well as addressing the delayed union of the fifth metatarsal. Given all these findings, the patient has been notified of all risks, complications, and benefits of surgical intervention at this time including, but not limited to, infection, hematoma, seroma, possibility of delayed wound healing, non-wound healing, and possibility of failure surgical intervention. No guarantees have been provided as to the outcome of surgical intervention at this time. Plenty of time was allowed for the patient to ask questions, which were answered to her apparent satisfaction at this time. It is at this time we decided to proceed. DESCRIPTION OF PROCEDURE AND FINDINGS: Patient was brought into the PACU prior to the procedure and provided a femoral block. See anesthesia report for details. At this time, patient was brought into the operating room and placed on the operating room table in the supine position. General anesthesia care was administered, and the patient was adequately sedated. A well-padded thigh tourniquet was applied to the patient's right thigh, and based on blood pressure, the patient's tourniquet was set to 300 mmHg. At this time, the right lower extremity was prepped and draped in the typical sterile fashion and lowered onto the surgical field. Attention at this time was directed to the right ankle where medial malleolus and lateral malleolus were identified and a skin marker was utilized, as well as the anterior aspect of the ankle joint where the palpable dell at the anterior aspect of the ankle joint was palpated with the foot in dorsiflexion. Once this was marked out, lines were drawn between these sites, and incision planning was made on these landmarks. The anteromedial portal was first established just medial to the tibialis anterior tendon. A syringe with 50 mL of lactated Ringer's and an 18-gauge needle was then injected at the anteromedial aspect, insufflating the joint, watching the characteristic dorsiflexion of the ankle joint at this time. Once this occurred, an 11 blade was utilized to make an incision to the level of skin, and then a curved mini hemostat was utilized to probe to the level of the anteromedial ankle joint capsule. Once this was performed, the obturator and trocar were then introduced at the anteromedial portal site. The obturator was then removed, and then a 30-degree 4.0 mm camera was introduced into the anteromedial aspect of the ankle joint. On inspection, there was a significant amount of synovitis encountered, which was hemorrhagic in nature. From that standpoint, decision was made after initial inspection to proceed with debridement. At this time, an anterolateral portal was established under direct intra-articular fluoroscopy, making sure not to damage the superficial peroneal nerve. From that standpoint, once the skin incision was made utilizing an 11 blade, the 3.4 mm shaver was then introduced. The shaver was utilized to debride any of the synovitis within the ankle joint. The posterior margin of the ankle was cleaned of any synovitis. The medial and lateral gutters were then cleaned of any remaining synovitis, as well as the anterior capsule. Most of her synovitis was localized to the anterolateral aspect of the ankle joint. From that standpoint, the portal sites were switched. Distraction was provided with the field technical assistant's help and the posterior margin of the talus was assessed at this time. Given the laxity of the lateral ankle ligaments, we were able to access the posterior margin. This was probed and checked for any osteochondral defects, of which there were none. There was some marginal spurring at the posterior aspect of the ankle joint; however, no significant chondral loss as the MRI indicated, as well as no osteochondral defects were identified. From that standpoint, the probe and the scope were then removed. The ankle was then stressed with a positive talar tilt +3, as well as a positive +2 anterior drawer, which were captured under video for fluoroscopy. Once this was performed, decision was made to proceed with the lateral ankle stabilization. Esmarch was utilized to exsanguinate the leg. The tourniquet was then inflated to 300 mmHg. A [id number] incision was made from the midsection of the fibula extending to the anterior process of the ankle. At this time, attention was directed to the anterior lip at the level of the ATFL and the CFL, where a cuff of approximately 2 mm of the ATFL was resected off its proximal footprint. Once this was resected, an internal brace was placed utilizing a 2.9 JuggerKnot into the talus, making sure not to violate the tibiotalar or the talocalcaneal joints. Once this was performed and was secured utilizing the BroadBand to the 2.9 Betta Link. This was secured under dorsiflexion and eversion with some laxity to the site to allow for no overrestriction of the ATFL. Once this was secured in the appropriate position, the 1.45 JuggerKnots were utilized just proximal and just distal to the 2.9 Betta Link in order to repair both the CFL and the ATFL ligaments in a shortened position. Once again at this time, the anterior drawer and talar tilt were performed, demonstrating significant improvement of the stabilization procedure. From that standpoint, inspection of the peroneal tendons took place. At the proximal extent, there was a low-lying muscle belly on the peroneus brevis as well as a significant amount of tenosynovitis on the peroneus longus of which both were debrided. Once this was performed, inspection of the superior peroneal retinaculum which was deemed to be intact with the foot in eversion, as well as utilizing a [place] to elevate the superior peroneal retinaculum to see for any laxity. The tunnel was checked and deemed adequate for gliding of the peroneus brevis and peroneus longus tendons. Sural nerve was retracted throughout this portion of the procedure. Inspection of the tendons just distal to the superior peroneal retinaculum demonstrated significantly calcified incarceration of both the peroneal tendons within their sheaths distally. There was no pliability, so decision was made to remove tendon sheath distally over the peroneus brevis and the peroneus longus. From that standpoint, range of motion was assessed and deemed to be adequate with no constrictures and no scar tissue developing at the lateral aspect of the ankle. Once that was performed, on fluoroscopic guidance on AP view and lateral, a linear incision was made at the central aspect over the fracture site of the fifth metatarsal. The nonunion was assessed at this time and debrided and fenestrated utilizing a K-wire. Once this was performed, a stab incision was made over the safe zone of the posterolateral calcaneus. Once this was performed, a 2.4 mm drill was utilized to make a small hole and then approximately 1 mL of calcaneal autograft was harvested utilizing curette. Once this was harvested, this was packed into the fracture site, and a 4.5 x 35 mm Cordoba screw was introduced through a small incision approximately 6 cm from the base of the fifth metatarsal. Once this was performed, it was checked under fluoroscopic guidance to be intramedullary within the fifth metatarsal canal, gaining excellent compression and compressing the fracture site extruding some of the graft that was just packed into the site. Once this was performed, copious amounts of sterile saline were utilized to flush the surgical sites. A 4-0 Monocryl was then utilized to coapt the subcutaneous skin edges. A 3-0 nylon was then utilized in a horizontal mattress-type fashion to coapt the skin edges in a simple interrupted or horizontal mattress-type fashion. Following this, a dressing consisting of Betadine, Adaptic, 4 x 4, Kerlix, ABD, and a well-padded posterior splint with sugar tong with the foot dorsiflexed orthogonal relative to longitudinal axis of the leg. Once this was performed, patient was then reversed from anesthesia and returned to the postoperative anesthesia care unit with vital signs stable and vascular status intact. The patient handled the anesthesia as well as the procedure without significant complication. Postoperative orders as indicated in the patient's discharge chart.
[2024-12-13] MEDS ORDERED: Ecotrin 325 MG PO SCH (10:00)
[2024-12-13] MEDS ORDERED: SIMETHICONE 80 MG PO SCH (10:00)
[2024-12-13] MEDS ORDERED: Levofloxacin 500 MG Tablet PO SCH (10:00)
== END 2024-12-12 16:07 | disposition home or self-care (01) ==
LOC: SDC 05:45 → MED SURG 11:35 → SDC 16:07
PROVIDERS: ATTEND Podiatrist Foot & Ankle Surgery
DX: M25.471 Effusion, right ankle (principal); M21.961 Unspecified acquired deformity of right lower leg; M25.371 Other instability, right ankle; M76.71 Peroneal tendinitis, right leg; M25.571 Pain in right ankle and joints of right foot; S92.351A Displaced fracture of fifth metatarsal bone, right foot, initial encounter for closed fracture
CPT/HCPCS: 20902; 27658; 27698; 28086; 28485; 29898; 36415; 73630; 76000; 80053; 85025; C1713; J0171; J0461; J0666; J0690; J2250; J2371; J2405; J2704; J3010; A9270-GY